=== PATIENT | female | born 1945 | race Caucasian/White ===

== ENCOUNTER → 2018-03-10 07:28 | Outpatient (CLI) | payer OTHER, SELFPAY ==
[2018-03-10 09:46] LABS: Alanine Aminotransferase 35 IU/L (9-52); Aspartate Aminotransferase 29 IU/L (14-36); BUN Creatinine Ratio 21.7 (6-22); Blood Urea Nitrogen 13 mg/dL (7-17); Calcium 9.2 mg/dL (8.4-10.2); Carbon Dioxide 31 mmol/L (22-32); Chloride 98 mmol/L (98-107); Cholesterol 126 mg/dL (140-199); Estimated Glomerular Filt Rate > 60.0 mL/min (>60); Glucose 105 mg/dL (80-110); HDL Cholesterol 50 mg/dL (40-60); HEMOLYSIS < 15 (0-50); LDL Cholesterol Calculated 32 mg/dL (<100); Sodium 141 mmol/L (137-145); Triglycerides 218 mg/dL (35-150)
== END ==
PROVIDERS: Visit Provider Internal Medicine
DX: I10 Essential (primary) hypertension (principal); E78.5 Hyperlipidemia, unspecified
CPT/HCPCS: 36415; 80048; 80061; 84450; 84460

== ENCOUNTER → 2018-03-18 13:26 | Outpatient (CLI) | payer OTHER, SELFPAY | PROVIDERS: PCP Internal Medicine; Visit Provider Internal Medicine | DX: Z13.820 Encounter for screening for osteoporosis (principal); Z78.0 Asymptomatic menopausal state | CPT/HCPCS: 77080 ==

== ENCOUNTER → 2018-05-05 10:50 | Outpatient (CLI) | payer OTHER, SELFPAY ==
--- NOTE | 2018-05-05 | DI.MG.S_ITS ---
BILATERAL DIGITAL SCREENING MAMMOGRAM 3D/2D WITH CAD: 05/05/2018 CLINICAL: Routine screening. Family history of breast cancer. Comparison is made to exams dated: 05/03/2017 mammogram, 05/30/2016 mammogram, and 06/01/2015 mammogram - [facility]. The tissue of both breasts is heterogeneously dense. This may lower the sensitivity of mammography. Current study was also evaluated with a Computer Aided Detection (CAD) system. There are stable benign vascular calcifications and calcifications in both breasts. No significant masses, calcifications, or other findings are seen in either breast. There has been no significant interval change. IMPRESSION: There is no mammographic evidence of malignancy. A 1 year screening mammogram is recommended. This exam was interpreted at Station ID: [id number]. NOTE: For mammograms, a report in lay terms will be sent to the patient. Approximately 15% of breast malignancies will not be visualized mammographically. In the management of a palpable breast mass, a negative mammogram must not discourage biopsy of a clinically suspicious lesion. Electronically Signed By: Eduardo [email or web address]/[email or web address]:05/05/2018 16:40:07 letter sent: Normal Exam ACR BI-RADS Category 2: Benign Finding(s) 3342F
== END ==
PROVIDERS: PCP Internal Medicine; Visit Provider Internal Medicine
DX: Z12.31 Encounter for screening mammogram for malignant neoplasm of breast (principal); Z80.3 Family history of malignant neoplasm of breast
CPT/HCPCS: 77063; 77067

== ENCOUNTER 2018-09-05 08:41 | Outpatient (RCR) | payer OTHER, SELFPAY ==
--- NOTE | 2018-09-05 09:42 | PT.OIE ---
Current Diagnoses Benign paroxysmal vertigo, unspecified ear (09/05/18) Benign paroxysmal vertigo, right ear (09/05/18) Dizziness and giddiness (09/05/18) Past Medical History (Last Reviewed 01/28/18 @ 09:32 by Sunni Gillette DNP, [place], WORK ADJUSTMENT INSTRUCTOR-C) Central serous retinopathy (Chronic 2013) Hypertension (Chronic 2004) Breast cancer (Resolved 2011) Mumps (Resolved ~1960) Ringworm (Resolved) Skin cancer (Resolved 2004) Past Surgical History (Last Reviewed 01/28/18 @ 09:32 by Sunni Gillette DNP, [place], WORK ADJUSTMENT INSTRUCTOR-C) Anesthesia (Resolved) Status post breast lumpectomy (Resolved 2011) Status post hysterectomy (Resolved) Provider Visit Care Team Role Provider Type Lee Ann Lamas MD Attending Provider Physician Primary Care Provider Specialty: Internal Medicine Address: [address] [place] [address] Email: Physical Therapy Initial Evaluation PT-OP-A Visit Information Start: 09/05/18 09:30 Freq: Status: Active Protocol: Document 09/05/18 09:00 DCW (Rec: 09/05/18 09:41 [facility] [id number]) Out-Patient Physical Therapy Visit Information Visit Information Visit Type Initial Evaluation Visit Start Time 09:00 Visit Stop Time 09:30 Total Visit Minutes 30 Visit Number 1 Number of DEPORTATION EXAMINER Visits 0 Evaluation Information Evaluation Date 09/05/18 PT-OP-B Current Condition Start: 09/05/18 09:30 Freq: Status: Active Protocol: Document 09/05/18 09:00 DCW (Rec: 09/05/18 09:41 [facility] [id number]) Current Condition History of Current Condition Onset Date 2 months Current Complaints Sudden onset position- dependent vertigo History of Current Condition Pt is a 73 year old female complaining of a two month history of motion-induced vertigo. Pt reports episodes last 30 seconds. Symptoms are provoked by laying in bed at night, and again when getting up in the morning. Pt denies recent hearing changes, tinnitus, diplopia, dysarthria , discoordination, or decreased mentation/ consciousness. Pt reports symptoms are waxing/waning in nature. Pt denies hx of hyperlipidemia, diabetes, arrhythmia, head trauma, seizure, migraines, back/neck problems, CVA, anxiety/panic disorders, depression, or excessive smoking or drinking. Pt does have a history of HTN , however reports it to be very well controlled on a low dose of medication. Treatment Goals Patient/Caregiver Goals Pt would like to limit the dizziness Prior Functional Status Baseline Function- ADL's Independent Baseline Function- Mobility Independent Current Functional Impairments (Reported) Functional Limitations- ADL's Dizziness with changes in position PT-OP-C Subjective Start: 09/05/18 09:30 Freq: Status: Active Protocol: Document 09/05/18 09:00 DCW (Rec: 09/05/18 09:41 [facility] [id number]) OP-PT Subjective Patient Comments Patient Comments It just seems like the wall moves when I roll over in bed. Patient Questionnaires Dizziness Handicap Inventory DHI Score 46% DHI Functional Impairment 40 to 59% Impaired (Score 40- 59) OP-PT Pain Assessment Pain Assessment Grid Paper Pain Assessment Grid Completed Yes: No pain PT-OP-O Vestibular Start: 09/05/18 09:30 Freq: Status: Active Protocol: Document 09/05/18 09:00 DCW (Rec: 09/05/18 09:41 [facility] [id number]) Vestibular Assessment Screening Tests Vestibular Artery Screen Negative Sharp-Chloé Test Negative Auditory Tests Harris Test Negative Rinne Test Negative Air Conduction Results Equal Visual Testing Smooth Pursuits Horizontal Negative Smooth Pursuits Vertical Negative Saccades Horizontal Negative Gaze Evoked Nystagmus With Fixation Negative Gaze Evoked Nystagmus Without Fixation Negative Heave Test Negative Thrust Head Negative Head Shake Negative Positional Testing Shaggy-Hallpike Positive Right Negative Left Upbeating < 60 Seconds Rolling Test Negative Left Negative Right PT-OP-Q Treatments Start: 09/05/18 09:30 Freq: Status: Active Protocol: Document 09/05/18 09:00 DCW (Rec: 09/05/18 09:41 [facility] [id number]) Canalithic Repositioning BPPV Treatment Mango Affected Canal(s) Right Posterior Reps x2 PT-OP-T Assessment and Plan Start: 09/05/18 09:30 Freq: Status: Active Protocol: Document 09/05/18 09:00 DCW (Rec: 09/05/18 09:41 [facility] [id number]) Physical Therapy Assessment Rehab Potential Rehabilitation Potential Excellent Evaluation Complexity Number of Personal Factors/Comorbidities 1-2 Number of Body Systems Impaired 1-2 Clinical Presentation at Evaluation Unstable Impairments Impairments Balance Vestibular Goals Three Impairment Pt score 46% disability on Dizziness Handicap Inventory Short Term Goal (STG) Pt to score at worst 15% disability on DHI Two Impairment Positive right Shaggy-Hallpike Short Term Goal (STG) Pt to exhibit negative [place]- [place] bilaterally STG Duration 10/05/18 One Impairment Pt reports dizziness when changing position in bed Short Term Goal (STG) Pt to report no dizziness with positional changes STG Duration 10/05/18 Assessment Summary Assessment During right Shaggy-Hallpike test , pt complained of vertigo and demonstrated up-beating, torsional nystagmus lasting approximately 15 seconds, consistent with diagnosis of right-sided posterior canal BPPV, canalithiasis-type. Pt was treated with a right-sided Mango maneuver. Pt complained of symptoms in the first and third position, which is normally indicative of a successful treatment. Further positional testing was still positive, however substantially less severe. A second Mango maneuver was performed. Pt was educated on BPPV, expectations for treatment, possible recurrence (BPPV has a ~50% recurrence rate in the five years following treatment), and post -Mango restrictions. Pt to return in ~1 week for a follow -up appointment, and intermittently afterward as indicated for treatment of BPPV. Physical Therapy Plan Frequency and Duration Frequency of Treatment as indicated for Tx Duration of Treatment 1 month Plan of Care Start Date 09/05/18 Plan of Care End Date 10/05/18 Therapeutic Interventions Therapeutic Interventions Balance Training Canalithic Repositioning Vestibular Rehabilitation Next Visit Focus/Plan Next Note Type Treatment Note Next Visit Plan Further positional testing and CRM as indicated
--- NOTE | 2018-09-05 09:42 | PT.OPPOC ---
Current Diagnoses Benign paroxysmal vertigo, unspecified ear (09/05/18) Benign paroxysmal vertigo, right ear (09/05/18) Dizziness and giddiness (09/05/18) Provider Visit Care Team Role Provider Type Lee Ann Lamas MD Attending Provider Physician Primary Care Provider Specialty: Internal Medicine Address: [address] [place] [address], [id number] Email: Plan Of Care PT-OP-T Assessment and Plan Start: 09/05/18 09:30 Freq: Status: Active Protocol: Document 09/05/18 09:00 DCW (Rec: 09/05/18 09:41 DCW [id number]) Physical Therapy Assessment Rehab Potential Rehabilitation Potential Excellent Evaluation Complexity Number of Personal Factors/Comorbidities 1-2 Number of Body Systems Impaired 1-2 Clinical Presentation at Evaluation Unstable Impairments Impairments Balance Vestibular Goals Three Impairment Pt score 46% disability on Dizziness Handicap Inventory Short Term Goal (STG) Pt to score at worst 15% disability on DHI Two Impairment Positive right [place]-Hallpike Short Term Goal (STG) Pt to exhibit negative [place]- Hallpike bilaterally STG Duration 10/05/18 One Impairment Pt reports dizziness when changing position in bed Short Term Goal (STG) Pt to report no dizziness with positional changes STG Duration 10/05/18 Assessment Summary Assessment During right [place]-Hallpike test , pt complained of vertigo and demonstrated up-beating, torsional nystagmus lasting approximately 15 seconds, consistent with diagnosis of right-sided posterior canal BPPV, canalithiasis-type. Pt was treated with a right-sided Mango maneuver. Pt complained of symptoms in the first and third position, which is normally indicative of a successful treatment. Further positional testing was still positive, however substantially less severe. A second Mango maneuver was performed. Pt was educated on BPPV, expectations for treatment, possible recurrence (BPPV has a ~50% recurrence rate in the five years following treatment), and post -Mango restrictions. Pt to return in ~1 week for a follow -up appointment, and intermittently afterward as indicated for treatment of BPPV. Physical Therapy Plan Frequency and Duration Frequency of Treatment as indicated for Tx Duration of Treatment 1 month Plan of Care Start Date 09/05/18 Plan of Care End Date 10/05/18 Therapeutic Interventions Therapeutic Interventions Balance Training Canalithic Repositioning Vestibular Rehabilitation Next Visit Focus/Plan Next Note Type Treatment Note Next Visit Plan Further positional testing and CRM as indicated Plan of Care Dates Plan of Care Start Date 09/05/18 Plan of Care End Date 10/05/18 Please Sign and Return: I have reviewed this Plan of Care and certify that the skilled therapy services above are required to meet the patient?s needs. Physician Signature Date Printed Name and Credentials Clinical Instructor Signature Printed Name and Credentials
--- NOTE | 2018-10-14 14:02 | PT.OPDS ---
Current Diagnoses Benign paroxysmal vertigo, unspecified ear (09/05/18) Benign paroxysmal vertigo, right ear (09/05/18) Dizziness and giddiness (09/05/18) Provider Visit Care Team Role Provider Type Lee Ann Lamas MD Attending Provider Physician Primary Care Provider Specialty: Internal Medicine Address: [address] [place] [address], [id number] Email: Visit Number Visit Number 1 Discharge Summary PT-OP-B Current Condition Start: 09/05/18 09:30 Freq: Status: Active Protocol: Document 09/05/18 09:00 DCW (Rec: 09/05/18 09:41 DCW [id number]) Current Condition History of Current Condition Onset Date 2 months Current Complaints Sudden onset position- dependent vertigo History of Current Condition Pt is a 73 year old female complaining of a two month history of motion-induced vertigo. Pt reports episodes last 30 seconds. Symptoms are provoked by laying in bed at night, and again when getting up in the morning. Pt denies recent hearing changes, tinnitus, diplopia, dysarthria , discoordination, or decreased mentation/ consciousness. Pt reports symptoms are waxing/waning in nature. Pt denies hx of hyperlipidemia, diabetes, arrhythmia, head trauma, seizure, migraines, back/neck problems, CVA, anxiety/panic disorders, depression, or excessive smoking or drinking. Pt does have a history of HTN , however reports it to be very well controlled on a low dose of medication. Treatment Goals Patient/Caregiver Goals Pt would like to limit the dizziness Prior Functional Status Baseline Function- ADL's Independent Baseline Function- Mobility Independent Current Functional Impairments (Reported) Functional Limitations- ADL's Dizziness with changes in position PT-OP-C Subjective Start: 09/05/18 09:30 Freq: Status: Active Protocol: Document 09/05/18 09:00 DCW (Rec: 09/05/18 09:41 DCW [id number]) OP-PT Subjective Patient Comments Patient Comments It just seems like the wall moves when I roll over in bed. Patient Questionnaires Dizziness Handicap Inventory DHI Score 46% DHI Functional Impairment 40 to 59% Impaired (Score 40- 59) OP-PT Pain Assessment Pain Assessment Grid Paper Pain Assessment Grid Completed Yes: No pain PT-OP-O Vestibular Start: 09/05/18 09:30 Freq: Status: Active Protocol: Document 09/05/18 09:00 DCW (Rec: 09/05/18 09:41 [facility] [id number]) Vestibular Assessment Screening Tests Vestibular Artery Screen Negative Sharp-Chloé Test Negative Auditory Tests Harris Test Negative Rinne Test Negative Air Conduction Results Equal Visual Testing Smooth Pursuits Horizontal Negative Smooth Pursuits Vertical Negative Saccades Horizontal Negative Gaze Evoked Nystagmus With Fixation Negative Gaze Evoked Nystagmus Without Fixation Negative Heave Test Negative Thrust Head Negative Head Shake Negative Positional Testing Shaggy-Hallpike Positive Right Negative Left Upbeating < 60 Seconds Rolling Test Negative Left Negative Right PT-OP-T Assessment and Plan Start: 09/05/18 09:30 Freq: Status: Active Protocol: Document 10/14/18 14:01 DC (Rec: 10/14/18 14:02 [facility] [id number]) Physical Therapy Assessment Goals Three Impairment Pt score 46% disability on Dizziness Handicap Inventory Short Term Goal (STG) Pt to score at worst 15% disability on DHI Two Impairment Positive right [place]-Hallpike Short Term Goal (STG) Pt to exhibit negative [place]- [place] bilaterally STG Duration 10/05/18 One Impairment Pt reports dizziness when changing position in bed Short Term Goal (STG) Pt to report no dizziness with positional changes STG Duration 10/05/18 Assessment Summary Assessment Pt instructed to follow-up with a second vestibular rehab appointment within one month if symptoms returned or changed. Pt has not scheduled any further visits, and will now be discharged from skilled PT at this time. Physical Therapy Plan Discharge Physical Therapy Discharge Reasons No Longer Attending PT Next Visit Focus/Plan Next Note Type Discharge Summary
== END 2018-10-14 15:39 ==
LOC: PHYS 08:41
PROVIDERS: PCP Internal Medicine; Visit Provider Internal Medicine
DX: H81.10 Benign paroxysmal vertigo, unspecified ear (principal); H81.11 Benign paroxysmal vertigo, right ear
CPT/HCPCS: 95992; 97161

== ENCOUNTER → 2018-10-10 09:59 | Outpatient (CLI) | payer OTHER, SELFPAY ==
[2018-10-14 14:33] LABS: Rubeola Measles IgG > 300.00 AU/mL (< 25.00)
== END ==
PROVIDERS: PCP Internal Medicine; Visit Provider Internal Medicine
DX: Z11.59 Encounter for screening for other viral diseases (principal)
CPT/HCPCS: 36415; 86735; 86762; 86765

== ENCOUNTER → 2019-03-20 07:39 | Outpatient (CLI) | payer OTHER, SELFPAY ==
[2019-03-20 15:18] LABS: Alanine Aminotransferase 35 IU/L (9-52); Aspartate Aminotransferase 37 IU/L (14-36); Blood Urea Nitrogen 15 mg/dL (7-17); Calcium 9.5 mg/dL (8.4-10.2); Carbon Dioxide 26 mmol/L (22-32); Chloride 100 mmol/L (98-107); Cholesterol 164 mg/dL (140-199); Estimated Glomerular Filt Rate > 60.0 mL/min (>60); Glucose 101 mg/dL (80-110); HDL Cholesterol 54 mg/dL (40-60); HEMOLYSIS 41 (0-50); LDL Cholesterol Calculated 63 mg/dL (<100); Potassium 4.9 mmol/L (3.4-5.1); Sodium 137 mmol/L (137-145); Triglycerides 235 mg/dL (35-150)
== END ==
PROVIDERS: PCP Internal Medicine; Visit Provider Internal Medicine
DX: I10 Essential (primary) hypertension (principal); E78.5 Hyperlipidemia, unspecified
CPT/HCPCS: 36415; 80048; 80061; 84450; 84460

== ENCOUNTER → 2019-05-07 09:53 | Outpatient (CLI) | payer OTHER, SELFPAY ==
--- NOTE | 2019-05-07 | DI.MG.S_ITS ---
BILATERAL DIGITAL SCREENING MAMMOGRAM 3D/2D WITH CAD: 05/07/2019 CLINICAL: Routine screening. Family history of breast cancer. Comparison is made to exams dated: 05/05/2018 mammogram, 05/03/2017 mammogram, and 05/30/2016 mammogram - [facility]. The tissue of both breasts is heterogeneously dense. This may lower the sensitivity of mammography. Current study was also evaluated with a Computer Aided Detection (CAD) system. There are stable benign calcifications in both breasts. There also are stable benign vascular calcifications in both breasts. No significant masses, calcifications, or other findings are seen in either breast. There has been no significant interval change. IMPRESSION: There is no mammographic evidence of malignancy. A 1 year screening mammogram is recommended. This exam was interpreted at Station ID: [id number]. NOTE: For mammograms, a report in lay terms will be sent to the patient. Approximately 15% of breast malignancies will not be visualized mammographically. In the management of a palpable breast mass, a negative mammogram must not discourage biopsy of a clinically suspicious lesion. Electronically Signed By: Matthew fraga/monae:05/07/2019 10:51:04 letter sent: Normal Exam ACR BI-RADS Category 2: Benign Finding(s) 3342F
== END ==
PROVIDERS: PCP Internal Medicine; Visit Provider Internal Medicine
DX: Z12.31 Encounter for screening mammogram for malignant neoplasm of breast (principal); Z80.3 Family history of malignant neoplasm of breast
CPT/HCPCS: 77063; 77067

== ENCOUNTER → 2019-10-28 07:13 | Outpatient (CLI) | payer OTHER, SELFPAY ==
[2019-10-28 09:12] LABS: Cholesterol 144 mg/dL (140-199); HDL Cholesterol 51 mg/dL (40-60); LDL Cholesterol Calculated 38 mg/dL (<100); Triglycerides 276 mg/dL (35-150)
[2019-10-28 09:24] LABS: Free T4, Direct Thyroxine 0.85 ng/dL (0.78-2.19)
[2019-10-28 09:37] LABS: Thyroid Stimulating Hormone 3.07 uIU/mL (0.47-4.68)
== END ==
PROVIDERS: PCP Internal Medicine; Referring Provider Nurse Practitioner; Visit Provider Nurse Practitioner
DX: E78.5 Hyperlipidemia, unspecified (principal); I10 Essential (primary) hypertension; E78.1 Pure hyperglyceridemia
CPT/HCPCS: 36415; 80061; 84439; 84443; 84481

== ENCOUNTER → 2020-01-28 07:04 | Outpatient (CLI) | payer OTHER, SELFPAY ==
[2020-01-28 08:39] LABS: Cholesterol 131 mg/dL (140-199); HDL Cholesterol 73 mg/dL (40-60); LDL Cholesterol Calculated 15 mg/dL (<100); Triglycerides 215 mg/dL (35-150)
== END ==
PROVIDERS: PCP Nurse Practitioner; Referring Provider Nurse Practitioner; Visit Provider Nurse Practitioner
DX: E78.1 Pure hyperglyceridemia (principal)
CPT/HCPCS: 36415; 80061

== ENCOUNTER 2020-03-15 06:46 | Emergency (ER) | payer OTHER, SELFPAY ==
[2020-03-15 06:59] VITALS: BP 211/111; PULSE 78; RESP 20; TEMP 36.6; O2SAT 96; BMI 30.7
--- NOTE | 2020-03-15 07:32 | DI.RAD.S_ITS ---
PROCEDURE: XR CERVICAL SPINE 2V OR 3V INDICATIONS: neck pain TECHNIQUE: 3 view(s) of the cervical spine were acquired. COMPARISON: None. FINDINGS: Bones: No fractures or dislocations to the superior endplate of T1 level. The lateral masses of C1 appear intact on the odontoid view. No suspicious bony lesions. Rnfy-ju-bdpoglab degenerative change demonstrable by a small anterior vertebral body osteophytes, uncovertebral joint hypertrophy, and mild intervertebral disc space height loss at C5-C6. Soft tissues: No prevertebral soft tissue swelling. IMPRESSION: [id number]-[id number] degenerative change in the cervical spine. Dictated by: Reid Mijares M.D. on 03/15/2020 at 8:02 Approved by: Reid Mijares M.D. on 03/15/2020 at 8:03
--- NOTE | 2020-03-15 07:36 | PC.NURSE ---
Pt instructed to take morning blood pressure medications per Dr Newman.
--- NOTE | 2020-03-15 08:01 | ED.NECK ---
HPI - Neck Pain/Injury General Chief Complaint: Neck Pain/Injury Stated Complaint: PAIN IN BACK OF NECK Time Seen by Provider: 03/15/20 06:46 Source: patient and family Mode of arrival: Ambulatory Limitations: no limitations History of Present Illness HPI Narrative: Patient here with . Complains 1 week mid posterior neck pain. No known injury. No new activities. No numbness tingling weakness to the hands feet legs or saddle paresthesia or bowel or bladder incontinence or retention. No prior neck problems or surgeries. No recent illness. No fever chills cough cold congestion. Patient being evaluated by primary care and neurology for early dementia. MRI to be rescheduled for open MRI for the brain. Blood pressure noted on arrival for has improved, 173/81 MD complaint: neck pain Related Data Previous Rx's Medication Instructions Recorded metoprolol succinate 25 mg 25 mg PO DAILY #90 tab 11/04/19 tablet,extended release 24 hr metoprolol succinate 50 mg 50 mg PO DAILY #90 tab 11/04/19 tablet,extended release 24 hr rosuvastatin 10 mg tablet 10 mg PO DAILY #90 tab 11/04/19 rosuvastatin 5 mg tablet 5 mg PO DAILY #90 tab 11/04/19 donepezil 5 mg tablet 5 mg PO BEDTIME #90 tab 02/03/20 baclofen 10 mg PO TID #14 tab 03/15/20 baclofen 10 mg PO TID #20 tab 03/15/20 ondansetron 4 mg PO Q8H PRN #10 tab 03/15/20 Allergies Allergy/AdvReac Type Severity Reaction Status Date / Time cephalexin [CEPHALEXIN] Allergy Mild RASH Verified 02/03/20 10:32 amoxicillin Allergy tongue Verified 02/03/20 10:32 swelling Review of Systems Review of Systems Narrative: GENERAL: Denies chills, fatigue, malaise, fever, sweats. HEENT: Denies sinus pain, ear pain, sore throat, difficulty swallowing RESPIRATORY: Denies dyspnea, cough CARDIOVASCULAR: Denies chest pain, palpitations, edema, GASTROINTESTINAL: Denies nausea, vomiting, abdominal pain, diarrhea, constipation, melena. : Denies dysuria, frequency, hematuria MUSCULOSKELETAL: Complains of neck pain SKIN: Denies rash, skin lesions NEUROLOGIC: Denies weakness, headache, numbness, change in speech, confusion PSYCHIATRIC: No SI or HI or hallucinations ROS Unobtainable: All systems reviewed & are unremarkable except as noted in HPI and below Patient History Medical History Breast cancer (Resolved 2011) Central serous retinopathy (Chronic 2013) Dementia (Acute) Forgetfulness (Inactive) Hypertension (Chronic 2004) Hypertriglyceridemia (Acute) Mumps (Resolved ~1960) PVC (premature ventricular contraction) (Acute) Ringworm (Resolved) Short-term memory loss (Inactive) Skin cancer (Resolved 2004) Varicose veins of both lower extremities (Inactive) Surgical History Anesthesia (Resolved) Status post breast lumpectomy (Resolved 2011) Status post hysterectomy (Resolved) Family History Father Hypertension Heart attack Mother Stroke Hypertension Social History Smoking Status: Never smoker Smoking Status: Never smoker Exam Narrative Exam Narrative: GENERAL: patient appears stated age. Well-nourished, well-developed patient, in no distress, not toxic not dyspneic HEAD: Normocephalic. EYES: Pupils equal round and reactive. No scleral icterus. No injection no discharge ENT: Mucous membranes moist. No drooling no tongue elevation no trismus no malocclusion NECK: Reproducible mid posterior cervical midline tenderness as well as paracervical muscle tenderness bilaterally. Increased pain with flexion extension and rotation of the head right and left. CARDIOVASCULAR: Regular rate and rhythm without murmurs, gallops, or rubs. RESPIRATORY: Clear to auscultation. Breath sounds equal bilaterally. No wheezes, rales, or rhonchi. GASTROINTESTINAL: Abdomen soft, non-tender, nondistended. EXTREMITIES: No gross deformities. BACK: Nontender without deformity or crepitance. No flank tenderness. NEURO: AOx4. Clear speech no facial droop light touch intact to bilateral face hands and legs. 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 Strong bilateral patellar reflexes and ankle flexion extension SKIN: Warm and dry PSYCH: Not anxious, is cooperative Initial Vital Signs Initial Vital Signs: Vital Signs Temperature 97.8 F 03/15/20 06:59 Pulse Rate 78 03/15/20 06:59 Respiratory Rate 20 03/15/20 06:59 Blood Pressure 211/111 H 03/15/20 06:59 Pulse Oximetry 96 03/15/20 06:59 Course Course Course Narrative: No new complaints while here. No chest pain. No neuro deficits or complaints. Orders Ordered: Discontinued Medications Hydrocodone Bitart/Acetaminophen ([place] 5/325) 1 tab PO NOW ONE Stop: 03/15/20 08:01 Last Admin: 03/15/20 08:11 Dose: 1 tab Documented by: LAMBERTO Ketorolac Tromethamine (Toradol) 15 mg IM NOW ONE Stop: 03/15/20 08:01 Last Admin: 03/15/20 08:12 Dose: 15 mg Documented by: LAMBERTO Ondansetron HCl (Zofran Odt) 4 mg SL NOW ONE Stop: 03/15/20 08:01 Last Admin: 03/15/20 08:11 Dose: 4 mg Documented by: LAMBERTO Reevaluation(s) Reevaluation #1: Patient feeling better blood pressure improved. Patient was anxious on arrival and, blood pressure noted. Has improved. Time: 08:28 Reevaluation #2: Pain is improved was 03/12 now 410. Patient and desire discharge home Time: 08:43 Vital Signs Vital signs: Vital Signs - 8 hr 03/15/20 06:59 03/15/20 08:19 Temperature 97.8 F Pulse Rate 78 73 Respiratory Rate 20 16 Blood Pressure 211/111 H 173/81 H Pulse Oximetry 96 MDM - Neck Pain/Injury Differential Diagnosis Differential diagnosis: Likely disc disorder of cervical region, cervical radiculopathy and torticollis Imaging Data X-ray cervical spine: Radiologist's Impression: [address] [address] XRay Report Signed Patient: Janeth Snell [facility]#: [id number] : 5Acct:[id number] Age/Sex: 74 / FDate of Service: 03/15/20 Loc: ED Accession Number: [id number] Procedure: XR cervical spine 2V or 3V Ordering Provider: Demetrius Newman MD PROCEDURE: XR CERVICAL SPINE 2V OR 3V INDICATIONS: neck pain TECHNIQUE: 3 view(s) of the cervical spine were acquired. COMPARISON: None. FINDINGS: Bones: No fractures or dislocations to the superior endplate of T1 level. The lateral masses of C1 appear intact on the odontoid view. No suspicious bony lesions. Zgob-lq-ablorxhs degenerative change demonstrable by a small anterior vertebral body osteophytes, uncovertebral joint hypertrophy, and mild intervertebral disc space height loss at C5-C6. Soft tissues: No prevertebral soft tissue swelling. IMPRESSION: Ylnq-lx-hrqqjwvr degenerative change in the cervical spine. Dictated by: Reid Mijares M.D. on 03/15/2020 at 8:02 Approved by: Reid Mijares M.D. on 03/15/2020 at 8:03 [facility] Narrative Medical decision making narrative: Appropriate for follow-up with primary care for referral for physical therapy as well as possible outpatient MRI of the cervical spine. Has no neuro deficits at this time. Blood pressure improved. Discharge Plan Departure Patient Disposition: Home Clinical Impression: Disc disorder of cervical region Discharge Date/Time: 03/15/20 08:48 Instructions: DI for Neck Pain Activity Restrictions/Additional Instructions: No driving today. See family doctor this week for recheck and referral for possible physical therapy or MRI of the neck. Have your blood pressure recheck as well. Return if worse or if any questions or concerns. Prescriptions have been sent to local [facility] in [facility] Prescriptions: New baclofen 10 mg tablet 10 mg PO TID Qty: 14 RF: 0 baclofen 10 mg tablet 10 mg PO TID Qty: 20 RF: 0 ondansetron 4 mg tablet,disintegrating 4 mg PO Q8H PRN (Reason: nausea and vomiting) Qty: 10 RF: 0 No Action rosuvastatin 10 mg tablet 10 mg PO DAILY Qty: 90 RF: 3 rosuvastatin 5 mg tablet 5 mg PO DAILY Qty: 90 RF: 3 metoprolol succinate 50 mg tablet extended release 24 hr 50 mg PO DAILY Qty: 90 RF: 3 metoprolol succinate 25 mg tablet extended release 24 hr 25 mg PO DAILY Qty: 90 RF: 3 donepezil [Aricept] 5 mg tablet 5 mg PO BEDTIME Qty: 90 RF: 3 Referrals: Anna Boyer ARNP [Primary Care Provider] -
[2020-03-15] MEDS: ONDANSETRON 4 MG ODT SL (08:11)
[2020-03-15] MEDS: HYDROCODONE/ACET 5/325 TABLET 1 TAB PO (08:11)
[2020-03-15] MEDS: KETOROLAC 60 MG/2 ML VIAL 15 MG IM (08:12)
[2020-03-15 08:19] VITALS: BP 173/81; PULSE 73; RESP 16
== END 2020-03-15 08:48 | disposition home or self-care (01) ==
PROVIDERS: Emergency Provider Emergency Medicine; PCP Nurse Practitioner
DX: M50.90 Cervical disc disorder, unspecified, unspecified cervical region (principal)
CPT/HCPCS: 72040; 96372; 99283; 99284; J1885

== ENCOUNTER → 2020-03-18 08:50 | Outpatient (CLI) | payer OTHER, SELFPAY ==
[2020-03-18 10:15] LABS: Alanine Aminotransferase 27 IU/L (<35); Albumin 3.9 g/dL (3.5-5.0); Albumin Globulin Ratio 1.3 (1.0-2.8); Alkaline Phosphatase 82 U/L (38-126); Aspartate Aminotransferase 31 IU/L (14-36); BUN Creatinine Ratio 19.1 (6-22); Bilirubin Total 0.7 mg/dL (0.2-1.3); Blood Urea Nitrogen 13 mg/dL (7-17); Calcium 9.6 mg/dL (8.4-10.2); Carbon Dioxide 31 mmol/L (22-32); Chloride 102 mmol/L (98-107); Estimated Glomerular Filt Rate > 60.0 mL/min (>60); Globulin 2.9 g/dL (1.7-4.1); Glucose 123 mg/dL (80-110); HEMOLYSIS < 15 (0-50); Magnesium 1.7 mg/dL (1.6-2.3); Potassium 4.5 mmol/L (3.4-5.1); Sodium 138 mmol/L (137-145); Total Protein 6.8 g/dL (6.3-8.2)
== END ==
PROVIDERS: PCP Nurse Practitioner; Referring Provider Nurse Practitioner; Visit Provider Nurse Practitioner
DX: I49.8 Other specified cardiac arrhythmias (principal)
CPT/HCPCS: 36415; 80053; 83735

== ENCOUNTER → 2020-07-12 07:07 | Outpatient (CLI) | payer OTHER, SELFPAY ==
[2020-07-12 08:56] LABS: Alanine Aminotransferase 93 IU/L (<35); Albumin 4.3 g/dL (3.5-5.0); Albumin Globulin Ratio 1.2 (1.0-2.8); Alkaline Phosphatase 99 U/L (38-126); Aspartate Aminotransferase 88 IU/L (14-36); BUN Creatinine Ratio 18.7 (6-22); Bilirubin Total 0.7 mg/dL (0.2-1.3); Blood Urea Nitrogen 14 mg/dL (7-17); Calcium 9.2 mg/dL (8.4-10.2); Carbon Dioxide 33 mmol/L (22-32); Chloride 101 mmol/L (98-107); Cholesterol 125 mg/dL (140-199); Estimated Glomerular Filt Rate > 60.0 mL/min (>60); Globulin 3.5 g/dL (1.7-4.1); Glucose 109 mg/dL (80-110); HDL Cholesterol 54 mg/dL (40-60); HEMOLYSIS 16 (0-50); LDL Cholesterol Calculated 40 mg/dL (<100); Potassium 4.3 mmol/L (3.4-5.1); Sodium 136 mmol/L (137-145); Total Protein 7.8 g/dL (6.3-8.2); Triglycerides 153 mg/dL (35-150)
[2020-07-12 09:12] LABS: Creatinine Urine Random 63.9 mg/dL
[2020-07-12 09:17] LABS: Microalbumi Creatinin Ratio Ur 275.4 ug/mg CR (<30); Microalbumin Urine Random 17.6 mg/dL (0-1.6)
[2020-07-12 09:17] LABS: Free T4, Direct Thyroxine 0.97 ng/dL (0.78-2.19)
[2020-07-12 09:30] LABS: Thyroid Stimulating Hormone 2.17 uIU/mL (0.47-4.68)
== END ==
PROVIDERS: PCP Nurse Practitioner; Referring Provider Nurse Practitioner; Visit Provider Nurse Practitioner
DX: E78.1 Pure hyperglyceridemia (principal); E78.5 Hyperlipidemia, unspecified; I10 Essential (primary) hypertension; Z79.899 Other long term (current) drug therapy
CPT/HCPCS: 36415; 80053; 80061; 82043; 82570; 84439; 84443; 84481

== ENCOUNTER → 2020-09-02 13:22 | Outpatient (CLI) | payer OTHER, SELFPAY ==
--- NOTE | 2020-09-02 13:23 | DI.MG.S_ITS ---
BILATERAL DIGITAL SCREENING MAMMOGRAM 3D/2D WITH CAD: 09/02/2020 CLINICAL: Routine screening. Family history of breast cancer. Comparison is made to exams dated: 05/07/2019 mammogram, 05/05/2018 mammogram, and 05/03/2017 mammogram - [facility]. There are scattered fibroglandular elements in both breasts. Current study was also evaluated with a Computer Aided Detection (CAD) system. There are stable benign calcifications in both breasts. There also are stable benign vascular calcifications in both breasts. No significant masses, calcifications, or other findings are seen in either breast. There has been no significant interval change. IMPRESSION: BENIGN There is no mammographic evidence of malignancy. A 1 year screening mammogram is recommended. This exam was interpreted at Station ID: [id number]. NOTE: For mammograms, a report in lay terms will be sent to the patient. Approximately 15% of breast malignancies will not be visualized mammographically. In the management of a palpable breast mass, a negative mammogram must not discourage biopsy of a clinically suspicious lesion. Electronically Signed By: Matthew fraga/monae:09/02/2020 14:11:36 letter sent: Normal Exam ACR BI-RADS Category 2: Benign Finding(s) 3342F
--- NOTE | 2020-09-02 13:23 | DI.RAD.S_ITS ---
PROCEDURE: XR DEXA AXIAL SKELETON INDICATIONS: post menopausal osteoporisis surveillance COMPARISON: [facility], CR, XR DEXA AXIAL SKELETON, 03/18/2018, 14:05. FINDINGS: This blank DEXA report has been sent in error by the PACS system. The correct and complete report will be forthcoming in 1-2 days. Thank you for your patience and understanding. Dictated by: Coreen Kurtz MD, PhD on 09/05/2020 at 13:29 Approved by: Coreen Kurtz MD, PhD on 09/05/2020 at 13:29
== END ==
PROVIDERS: PCP Nurse Practitioner; Referring Provider Nurse Practitioner; Visit Provider Nurse Practitioner
DX: Z12.31 Encounter for screening mammogram for malignant neoplasm of breast (principal); M85.851 Other specified disorders of bone density and structure, right thigh
CPT/HCPCS: 77063; 77067; 77080

== ENCOUNTER → 2020-09-09 09:02 | Outpatient (CLI) | payer OTHER, SELFPAY ==
[2020-09-09 10:46] LABS: COVID19 -Nasal RAPID Negative (Negative)
== END ==
PROVIDERS: PCP Nurse Practitioner; Visit Provider Surgery
DX: Z20.822 Contact with and (suspected) exposure to COVID-19 (principal)
CPT/HCPCS: 87635; C9803

== ENCOUNTER 2020-09-12 07:29 | Day surgery (SDC) | payer OTHER, SELFPAY ==
[2020-09-12 07:44] VITALS: BP 159/81; PULSE 77; RESP 16; TEMP 35.9; O2SAT 95; BMI 31.6
[2020-09-12] MEDS: LACTATED RINGERS 1,000 ML 200 ML IV (07:44)
--- NOTE | 2020-09-12 07:47 | PM.HP.1 ---
History of Present Illness History of Present Illness Date Patient Seen: 09/12/20 Time Patient Seen: 07:48 Chief complaint: SCREENING COLONOSCOPY Narrative: The patient presents for colorectal sreening. They had a previously normal colonoscopy 10 years ago. No personal or family history of colon cancer. On further history denies any recent gastrointestinal symptoms. No nausea, vomiting, abdominal pain, loss of appetite, unexplained weight loss, change in bowel habits, diarrhea, constipation, melena, hematochezia, or bright red blood per rectum. Patient History Medical History Alzheimer's dementia without behavioral disturbance [place] Breast cancer (2011) Central serous retinopathy (2013) Dementia Forgetfulness Hypertension (2004) Hypertriglyceridemia Irregular heart rhythm Memory loss Mumps (~1960) Neck pain PVC (premature ventricular contraction) Ringworm Short-term memory loss Skin cancer (2004) Varicose veins of both lower extremities Surgical History Anesthesia Status post breast lumpectomy (2011) Status post hysterectomy Family & Social History Family History Father Hypertension Heart attack Mother Stroke Hypertension Tobacco & Substance use: Smoking Status Never smoker Meds Home Medications and Allergies Home Medications Medication Instructions Recorded Confirmed Type metoprolol succinate 50 mg 50 mg PO BID #180 tab 07/19/20 09/12/20 Rx tablet,extended release 24 hr rosuvastatin 10 mg tablet 10 mg PO DAILY #90 tab 07/19/20 09/12/20 Rx rosuvastatin 5 mg tablet 5 mg PO DAILY #90 tab 07/19/20 09/12/20 Rx memantine 5 mg tablet 10 mg PO BID #360 tab 08/02/20 09/12/20 Rx Allergies Allergy/AdvReac Type Severity Reaction Status Date / Time cephalexin [CEPHALEXIN] Allergy Mild RASH Verified 09/12/20 07:35 amoxicillin Allergy tongue Verified 09/12/20 07:35 swelling Review of Systems Review of Systems ROS: Yes All systems reviewed with the patient and are negative except as otherwise documented Exam Narrative Exam Narrative: General-no acute distress, elderly woman HEENT-moist mucous membranes, no scleral icterus Neck-supple, no lymphadenopathy Chest- non labored respirations, clear to auscultation bilaterally Cardiac-regular rate no peripheral edema Abdomen-soft, nontender nondistended Extremities-warm, well perfused Neurological-alert and oriented, no focal deficits Assessment & Plan Assessment & Plan narrative: The patient requires colorectal screening and colonoscopy is recommended. Technical details were discussed. Risks, benefits, alternatives explained. Risks including but not limited to myocardial infarction, aspiration, bleeding, pain, missed lesion, incomplete examination, need for further radiographic studies, colonic perforation, and need for major abdominal surgery were discussed. All questions were answered to their satisfaction, and they are in agreement with this plan.
[2020-09-12] MEDS: METOPROLOL TARTRATE 5 MG/5 ML INJ IV (08:53)
[2020-09-12] MEDS: MIDAZOLAM 5 MG/5 ML VIAL IV (08:54)
[2020-09-12] MEDS: fentaNYL 250 MCG/5 ML INJ IV (08:56)
--- NOTE | 2020-09-12 09:00 | PM.OP.ENDO ---
Operative Date/Time/Diagnoses Date of procedure: 09/12/20 Time of procedure: 09:00 Pre-op diagnosis: Screening colonoscopy Post-op diagnosis: same Procedure & Clinicians Study performed: Aborted colonoscopy Same procedure as scheduled: Yes Indications: 75-year-old woman last colonoscopy 10 years ago normal presents for routine screening Surgeon: Mansoor Nur Procedure Notes Procedure in detail: Medications: Conscious sedation using 5mg IV midazolam and 200mcg IV of fentanyl The history and physical was performed/updated and the patient is ASA class is 2. The procedure was discussed in detail with the patient. Potential risks complications including infection, bleeding, missed diagnosis, perforation, need for surgery, and were explained. Their questions were answered and informed consent was obtained. Patient was brought to the procedure room and placed standard monitoring equipment. The patient's vital signs were monitored continuously throughout the entire procedure. Prior to starting time-out was performed. The patient was placed in the left lateral recumbent position. Procedural sedation was administered. Examination began with a thorough inspection of the perianal area there was no evidence of fissures, fistulae, external hemorrhoids or cutaneous malignancy. The colonoscopy scope was then placed into the anal canal and was advanced forward. The sigmoid colon was notable for significant diverticulosis and at about 40 cm from the anal verge there was a large amount remaining stool. Despite irrigation I was unable to adequately clear the lumen of the bowel and the colonoscopy was subsequently aborted secondary to inadequate prep. Sedation time 18 minutes. Impression: Aborted colonoscopy Post-procedure Plan for aftercare: Reschedule after adequate preparation Disposition: same day surgery
[2020-09-12 09:05] VITALS: BP 146/76; PULSE 66; RESP 12; TEMP 36.6; O2SAT 96
[2020-09-12 09:10] VITALS: BP 146/76; PULSE 75; RESP 13; O2SAT 96
[2020-09-12 09:15] VITALS: BP 129/72; PULSE 65; RESP 10; O2SAT 94
[2020-09-12 09:20] VITALS: BP 122/66; PULSE 67; RESP 13; O2SAT 96
[2020-09-12 09:25] VITALS: BP 122/66; PULSE 78; RESP 13; TEMP 36.4; O2SAT 94
== END 2020-09-12 09:40 | disposition home or self-care (01) ==
PROVIDERS: PCP Nurse Practitioner; Referring Provider Nurse Practitioner; Visit Provider Surgery
PROC: 0DJD8ZZ Inspection of Lower Intestinal Tract, Via Natural or Artificial Opening Endoscopic (ICD-10-PCS; CPT 45378; principal; 2020-09-12 08:30)
DX: Z12.11 Encounter for screening for malignant neoplasm of colon (principal); K57.30 Diverticulosis of large intestine without perforation or abscess without bleeding; Z53.09 Procedure and treatment not carried out because of other contraindication
CPT/HCPCS: G0121; 99152; J2250; J3010

== ENCOUNTER → 2020-10-20 07:18 | Outpatient (CLI) | payer OTHER, SELFPAY ==
[2020-10-20 08:24] LABS: BUN Creatinine Ratio 21.2 (6-22); Blood Urea Nitrogen 14 mg/dL (7-17); Calcium 9.5 mg/dL (8.4-10.2); Carbon Dioxide 28 mmol/L (22-32); Chloride 103 mmol/L (98-107); Estimated Glomerular Filt Rate > 60.0 mL/min (>60); Glucose 115 mg/dL (80-110); HEMOLYSIS < 15 (0-50); Potassium 4.6 mmol/L (3.4-5.1); Sodium 138 mmol/L (137-145)
[2020-10-20 09:11] LABS: Vitamin B12 691 pg/mL (239-931)
== END ==
PROVIDERS: PCP Nurse Practitioner; Referring Provider Family Medicine; Visit Provider Family Medicine
DX: R41.3 Other amnesia (principal)
CPT/HCPCS: 36415; 80048; 82607; 84443

== ENCOUNTER → 2021-11-20 07:25 | Outpatient (CLI) | payer OTHER, SELFPAY ==
[2021-11-20 08:27] LABS: Alanine Aminotransferase 31 IU/L (<35); Albumin 4.1 g/dL (3.5-5.0); Albumin Globulin Ratio 1.5 (1.0-2.8); Alkaline Phosphatase 84 U/L (38-126); Aspartate Aminotransferase 37 IU/L (14-36); BUN Creatinine Ratio 16.9 (6-22); Bilirubin Total 0.8 mg/dL (0.2-1.3); Blood Urea Nitrogen 12 mg/dL (7-17); Calcium 8.8 mg/dL (8.4-10.2); Carbon Dioxide 28 mmol/L (22-32); Chloride 103 mmol/L (98-107); Cholesterol 120 mg/dL (140-199); Estimated Glomerular Filt Rate > 60 mL/min (>60); Globulin 2.8 g/dL (1.7-4.1); Glucose 112 mg/dL (80-110); HDL Cholesterol 54 mg/dL (40-60); HEMOLYSIS < 15 (0-50); LDL Cholesterol Calculated 36 mg/dL (<100); Potassium 4.7 mmol/L (3.4-5.1); Sodium 138 mmol/L (137-145); Total Protein 6.9 g/dL (6.3-8.2); Triglycerides 148 mg/dL (35-150)
[2021-11-20 08:39] LABS: Free T3, Triiodothyronine Free 3.61 pg/mL (2.77-5.27); Free T4, Direct Thyroxine 0.85 ng/dL (0.78-2.19)
[2021-11-20 08:55] LABS: Creatinine Urine Random 228.5 mg/dL
[2021-11-20 08:56] LABS: Hemoglobin A1C% w Est Avg Glu 5.7 % (4.0-6.0)
[2021-11-20 09:00] LABS: Microalbumi Creatinin Ratio Ur 23.6 ug/mg CR (<30); Microalbumin Urine Random 5.4 mg/dL (0-1.6)
== END ==
PROVIDERS: PCP Nurse Practitioner; Referring Provider Nurse Practitioner; Visit Provider Nurse Practitioner
DX: E78.2 Mixed hyperlipidemia (principal); R73.01 Impaired fasting glucose; I10 Essential (primary) hypertension; I49.3 Ventricular premature depolarization; Z79.899 Other long term (current) drug therapy
CPT/HCPCS: 36415; 80053; 80061; 82043; 82570; 83036; 84439; 84443; 84481

== ENCOUNTER → 2022-03-24 09:09 | Outpatient (CLI) | payer OTHER, SELFPAY ==
--- NOTE | 2022-03-24 09:12 | DI.RAD.S_ITS ---
PROCEDURE: XR WRIST RT MIN 3V INDICATIONS: eval right wrist pain; previous fracture TECHNIQUE: Four views of the wrist were acquired. COMPARISON: [facility], , WRIST MINIMUM 3 VIEWS LEFT, 04/15/2017, 10:18. FINDINGS: Bones: There are prominent degenerative changes at the 1st carpometacarpal and triscaphe articulations in the wrist. There is widening of the scapholunate interval and slight dorsal tilt of the lunate. Tiny non corticated calcific fragments are seen along the lateral distal pole of the scaphoid. Scaphoid view: Scaphoid is intact. No evidence of avascular necrosis. Soft tissues: Mild swelling around the thenar eminence. Probable dystrophic calcifications adjacent to the 1st CMC joint. Faint calcifications in the triangular fibrocartilage. IMPRESSION: Interval worsening of 1st CMC joint osteoarthritis. No fracture or dislocation. No evidence of osteonecrosis. Dictated by: Savanah Abraham M.D. on 03/24/2022 at 9:59 Approved by: Moise Baires M.D. on 03/26/2022 at 11:24
[2022-03-24 10:49] LABS: Uric Acid 6.7 mg/dL (2.5-6.2)
== END ==
PROVIDERS: PCP Nurse Practitioner; Referring Provider Nurse Practitioner; Visit Provider Nurse Practitioner
DX: M18.11 Unilateral primary osteoarthritis of first carpometacarpal joint, right hand (principal); M25.531 Pain in right wrist
CPT/HCPCS: 36415; 73110; 84550

== ENCOUNTER → 2022-04-13 14:52 | Outpatient (CLI) | payer OTHER, SELFPAY | PROVIDERS: PCP Nurse Practitioner; Referring Provider Nurse Practitioner; Visit Provider Nurse Practitioner | DX: I10 Essential (primary) hypertension (principal) | CPT/HCPCS: 93005; 93010 ==

== ENCOUNTER → 2022-04-16 08:59 | Outpatient (CLI) | payer OTHER, SELFPAY ==
[2022-04-17 19:17] LABS: Fecal Immunochemical Test Negative (Negative)
== END ==
PROVIDERS: PCP Nurse Practitioner; Referring Provider Nurse Practitioner; Visit Provider Nurse Practitioner
DX: Z12.11 Encounter for screening for malignant neoplasm of colon (principal)
CPT/HCPCS: 82274

== ENCOUNTER → 2022-04-30 12:22 | Outpatient (CLI) | payer OTHER, SELFPAY ==
[2022-04-30 13:13] LABS: Uric Acid 4.1 mg/dL (2.5-6.2)
== END ==
PROVIDERS: PCP Nurse Practitioner; Referring Provider Nurse Practitioner; Visit Provider Nurse Practitioner
DX: M25.531 Pain in right wrist (principal); M10.9 Gout, unspecified
CPT/HCPCS: 36415; 84550

== ENCOUNTER → 2022-05-04 13:30 | Outpatient (CLI) | payer OTHER, SELFPAY ==
--- NOTE | 2022-05-04 13:35 | DI.MG.S_ITS ---
BILATERAL DIGITAL SCREENING MAMMOGRAM 3D/2D WITH CAD: 05/04/2022 CLINICAL: Routine screening. Family history of breast cancer. Comparison is made to exams dated: 09/02/2020 mammogram, 05/07/2019 mammogram, and 05/05/2018 mammogram - [facility]. There are scattered areas of fibroglandular density in both breasts (category b / 25%-50% glandular tissue). Current study was also evaluated with a Computer Aided Detection (CAD) system. There are stable benign calcifications in both breasts. There also are stable benign vascular calcifications in both breasts. No significant masses, calcifications, or other findings are seen in either breast. There has been no significant interval change. IMPRESSION: BENIGN There is no mammographic evidence of malignancy. A 1 year screening mammogram is recommended. This exam was interpreted at Station ID: [id number]. NOTE: For mammograms, a report in lay terms will be sent to the patient. Approximately 15% of breast malignancies will not be visualized mammographically. In the management of a palpable breast mass, a negative mammogram must not discourage biopsy of a clinically suspicious lesion. Electronically Signed By: Savanah ryan/monae:05/04/2022 18:04:27 letter sent: Normal Exam ACR BI-RADS Category 2: Benign Finding(s) 3342F
--- NOTE | 2022-05-04 13:35 | DI.ECHO.S_ITS ---
[place] [facility]---------+ [facility] +---------+ : : [address] : : : : [id number] : : : : Phone: [phone]+ Echocardiogram Report + + :Name: FAIZAN ROSARIO Study Date: 05/04/2022 Height: 65 in : :[facility] ReadingLocation: Weight: 195 lb : : Gender: Female BSA: 2.0 m2 : :: 1945 Age: 76 yrs BP: 168/95 mmHg: :Reason For Study: Hypertension : :Ordering Physician: JAELYN, : :YOKO Performed By: Jimy Sinha : :Referring: YOKO CHRISTY : + + Interpretation Summary Normal sinus rhythm. Normal LV size, wall thickness, wall motion and LV systolic function. EF is 55-60%. Normal chamber sizes. No valvular abnormalities. No prior study available for comparison. Procedure: A two-dimensional transthoracic echocardiogram with color flow and Doppler was performed. The study quality was technically adequate. There is no prior echocardiogram noted for this patient. The patient was in normal sinus rhythm during the exam. Left Ventricle: The left ventricle is normal in size and wall thickness. Left ventricular systolic function is normal. The ejection fraction is estimated to be 55-60%. There are no focal wall motion abnormalities. Diastolic function could not be accurately assessed due to unobtainable data. Right Ventricle: The right ventricle is normal in size and function. Atria: Both atria are normal in size. The interatrial septum grossly appears intact with no obvious evidence for an atrial septal defect. Mitral Valve: There is mild mitral annular calcification. There is no mitral regurgitation noted. Aortic Valve: The aortic valve is normal in structure and function. No aortic regurgitation is present. Tricuspid Valve: The tricuspid valve is normal in structure and function. There is mild tricuspid regurgitation. The right ventricular systolic pressure is estimated to be at least 29 mmHg based on an estimated right atrial pressure of 3 mm Hg. Pulmonic Valve: The pulmonic valve is normal in structure and function. There is no pulmonic valvular regurgitation. Great Vessels: The aortic root is normal size. The ascending aorta could not be visualized. The IVC is of normal diameter and collapses greater than 50% with a sniff. This suggests a low right atrial pressure of 3 mm Hg. Pericardium/ Pleura There is no pericardial effusion. There is no pleural effusion. MMode/2D Measurements & Calculations LVIDd: 4.2 cm LVOT diam: 2.0 cm LVIDs: 2.9 cm Ao root diam: 2.6 cm FS: 31.0 % IVSd: 0.78 cm LVPWd: 0.80 cm LV nice. diameter/BSA (cm/m^2): 2.1 LV sys. diameter/BSA (cm/m^2): 1.5 LA A2 area: 13.3 cm2 RA long axis: 4.0 cm LA A4 area: 16.4 cm2 RA area: 11.2 cm2 LA length (vol): 5.2 cm RA vol: 27.2 ml LA vol: 35.5 ml RA : 13.9 ml/m2 LA vol index: 18.1 ml/m2 TAPSE: 2.2 cm Doppler Measurements & Calculations Ao V2 max: 171.5 cm/sec LVOT Max Jose F: 101.1 cm/sec Ao V2 mean: 111.8 cm/sec LV V1 max P.1 mmHg Ao max P.8 mmHg LV V1 VTI: 22.7 cm Ao mean P.6 mmHg ENRRIQUE(I,D): 2.1 cm2 Ao V2 VTI: 33.4 cm ENRRIQUE(V,D): 1.9 cm2 sev ratio: 0.68 ENRRIQUE indexed to BSA (cm^2/m^2): 1.1 MV E max jose f: 48.1 cm/sec TR max jose f: 256.1 cm/sec MV A max jose f: 93.9 cm/sec TR max P.2 mmHg MV E/A: 0.51 Med Peak E' Jose F: 6.6 cm/sec E/E' med: 7.3 Lat Peak E' Jose F: 8.2 cm/sec E/E' lat: 5.8 E/e' average: 6.6 MV dec time: 0.42 sec SV(LVOT): 71.6 ml Electronically signed by: Jennifer Cabrera M.D. on Reading Physician:05/05/2022 02:33 AM
== END ==
PROVIDERS: PCP Nurse Practitioner; Referring Provider Nurse Practitioner; Visit Provider Nurse Practitioner
DX: Z12.31 Encounter for screening mammogram for malignant neoplasm of breast (principal); Z80.3 Family history of malignant neoplasm of breast; I08.1 Rheumatic disorders of both mitral and tricuspid valves; Z00.00 Encounter for general adult medical examination without abnormal findings; I49.3 Ventricular premature depolarization; I10 Essential (primary) hypertension
CPT/HCPCS: 77063; 77067; 93306

== ENCOUNTER → 2022-05-12 12:39 | Outpatient (CLI) | payer OTHER, SELFPAY ==
--- NOTE | 2022-05-12 | DI.MRI.S_ITS ---
PROCEDURE: MR WRIST RT WO CON INDICATIONS: Dislocated right wrist TECHNIQUE: Noncontrast coronal proton density fast spin echo and T2 fast spin echo with fat saturation; coronal 3-D gradient echo, axial T1 spin echo and T2 fast spin echo with fat saturation, sagittal T1 spin echo through the wrist. COMPARISON: [facility], CR, XR WRIST RT MIN 3V, 03/24/2022, 9:22. FINDINGS: Image quality: Excellent. Bones and cartilage: The carpal bones are normally aligned. No bone marrow contusions or fractures. No evidence for avascular necrosis. Severe degenerative changes are seen at the 1st carpometacarpal joint with full-thickness cartilage loss, subchondral cystic changes and subchondral edema, marginal osteophyte formation, and mild remodeling of the articular surfaces. Subchondral edema is seen in the 2nd metacarpal base. Additional scattered degenerative changes are seen throughout the wrist. Small joint effusions are present. Carpal ligaments: The scapholunate and lunotriquetral ligaments appear intact. On sagittal images, the pisohamate ligament appears intact. Triangular fibrocartilage complex: There is focal degenerative perforation of the central triangular fibrocartilage disc. Tendons and soft tissues: The carpal tunnel structures appear normal, including the median nerve. The ulnar nerve appears normal within Guyon's canal. Mild extensor carpi ulnaris tendinosis. The remaining extensor tendon compartments demonstrate normal morphology, without pathologic tendon sheath fluid. Nonspecific soft tissue edema is seen in the subcutaneous tissues at the ulnar aspect of the wrist. IMPRESSION: 1. Severe 1st carpometacarpal joint osteoarthrosis. Additional mild to moderate scattered degenerative changes throughout the wrist. 2. Mild osseous edema at the base of the 2nd metacarpal may be secondary to degenerative changes versus a mild osseous contusion. 3. Focal degenerative perforation of the central triangular fibrocartilage disc. 4. Mild extensor carpi ulnaris tendinosis. Approved by: Willard Devine M.D. on 05/14/2022 at 8:26
== END ==
PROVIDERS: PCP Nurse Practitioner; Referring Provider Orthopaedic Surgery; Visit Provider Orthopaedic Surgery
DX: S63.00 Unspecified subluxation and dislocation of wrist and hand (principal); M18.11 Unilateral primary osteoarthritis of first carpometacarpal joint, right hand
CPT/HCPCS: 73221

== ENCOUNTER → 2022-11-20 09:31 | Outpatient (CLI) | payer OTHER, SELFPAY ==
--- NOTE | 2022-11-20 09:33 | DI.RAD.S_ITS ---
PROCEDURE: XR KNEE RT 3V INDICATIONS: Acute worsening R knee pain TECHNIQUE: 3 views of the knee were acquired. COMPARISON: None. FINDINGS: Bones: No fractures or dislocations. Cdmo-xk-ifqnqvrj tricompartmental osteoarthritis is seen most notably in patellofemoral compartment with significant joint space narrowing, subchondral sclerosis and prominent marginal osteophyte formation. Slight lateral subluxation of patella is also noted. No suspicious bony lesions. Soft tissues: No joint effusion. No suspicious soft tissue calcifications. IMPRESSION: Wykv-ts-pxjmqnbe tricompartmental osteoarthritis most notably in patellofemoral compartment as above. No fracture or dislocation. No significant joint effusion. Dictated by: Moise Baires M.D. on 11/20/2022 at 9:59 Approved by: Moise Baires M.D. on 11/20/2022 at 10:01
== END ==
PROVIDERS: PCP Nurse Practitioner; Referring Provider Nurse Practitioner; Visit Provider Nurse Practitioner
DX: M17.11 Unilateral primary osteoarthritis, right knee (principal); M25.561 Pain in right knee
CPT/HCPCS: 73562

== ENCOUNTER → 2022-12-03 07:11 | Outpatient (CLI) | payer OTHER, SELFPAY ==
[2022-12-03 08:36] LABS: Microalbumi Creatinin Ratio Ur 90.7 ug/mg CR (<30); Microalbumin Urine Random 13.7 mg/dL (0-1.6)
[2022-12-03 08:37] LABS: Alanine Aminotransferase 37 IU/L (<35); Albumin 4.2 g/dL (3.5-5.0); Albumin Globulin Ratio 1.5 (1.0-2.8); Alkaline Phosphatase 100 U/L (38-126); Aspartate Aminotransferase 36 IU/L (14-36); BUN Creatinine Ratio 20.8 (6-22); Bilirubin Total 0.6 mg/dL (0.2-1.3); Blood Urea Nitrogen 15 mg/dL (7-17); Calcium 9.8 mg/dL (8.4-10.2); Carbon Dioxide 30 mmol/L (22-32); Chloride 100 mmol/L (98-107); Cholesterol 128 mg/dL (140-199); Estimated Glomerular Filt Rate > 60 mL/min (>60); Globulin 2.8 g/dL (1.7-4.1); Glucose 101 mg/dL (80-110); HDL Cholesterol 61 mg/dL (40-60); HEMOLYSIS < 15 (0-50); LDL Cholesterol Calculated 31 mg/dL (<100); Potassium 4.8 mmol/L (3.4-5.1); Sodium 138 mmol/L (137-145); Triglycerides 182 mg/dL (35-150)
[2022-12-03 08:45] LABS: Free T3, Triiodothyronine Free 4.88 pg/mL (2.77-5.27); Free T4, Direct Thyroxine 0.94 ng/dL (0.78-2.19)
[2022-12-03 08:58] LABS: Thyroid Stimulating Hormone 2.16 uIU/mL (0.47-4.68)
[2022-12-04 06:22] LABS: x Labcorp Estim. Avg Glu (eAG) 114 mg/dL (.); x Labcorp Hemoglobin A1c 5.6 % (4.8-5.6)
== END ==
PROVIDERS: PCP Nurse Practitioner; Referring Provider Nurse Practitioner; Visit Provider Nurse Practitioner
DX: E78.1 Pure hyperglyceridemia; I10 Essential (primary) hypertension; E78.2 Mixed hyperlipidemia; Z79.899 Other long term (current) drug therapy
CPT/HCPCS: 36415; 80053; 80061; 82043; 82570; 83036; 84439; 84443; 84481

== ENCOUNTER → 2022-12-10 11:12 | Outpatient (CLI) | payer OTHER, SELFPAY ==
--- NOTE | 2022-12-10 11:12 | DI.RAD.S_ITS ---
Bone Density Report Name: FAIZAN ROSARIO Age: 77 Sex: Female Ethnicity: White Date of : 1945 Indication: osteopenia; Referring Provider: YOKO CHRISTY Study: Bone densitometry was performed. Exam Date: December 10, 2022 Accession number: [id number] Bone Density: Region BMD T-score Z-score Classification AP Spine(L1-L4) 1.003 -0.4 2.1 Normal Femoral Neck (Left) 0.711 -1.2 0.9 Osteopenia Total Hip (Left) 0.873 -0.6 1.4 Normal Femoral Neck (Right) 0.696 -1.4 0.8 Osteopenia Total Hip (Right) 0.867 -0.6 1.3 Normal Total Hip Mean 0.870 -0.6 1.4 Normal World Health Organization criteria for BMD impression classify patients as: Normal (T-score at or above -1.0), Osteopenia (T-score between -1.0 and -2.5), or Osteoporosis (T-score at or below -2.5). 10-year Fracture Risk(1): Major Osteoporotic Fracture 12% Hip Fracture 2.4% Reported Risk Factors: [place] (), Neck BMD=0.696, BMI=31.6 (1) FRAX(R) Version 3.08. Fracture probability calculated for an untreated patient. Fracture probability may be lower if the patient has received treatment. Previous Exams: -- Region Exam Age BMD T-score BMD Change BMD Change Date g/cm2 vs Baseline vs Previous -- AP Spine (L1-L4) 12/10/2022 77 1.003 -0.4 0.075 (8.0%)# 0.075 (8.0%)# 09/02/2020 75 0.928 -1.1 Total Hip(Left) 12/10/2022 77 0.873 -0.6 0.014 (1.6%)# 0.014 (1.6%)# 09/02/2020 75 0.860 -0.7 Total Hip(Right) 12/10/2022 77 0.867 -0.6 0.029 (3.5%)# 0.029 (3.5%)# 09/02/2020 75 0.837 -0.9 -- *Denotes significance at 95% confidence level, LSC for AP Spine = 0.022 g/cm2, LSC for Total Hip = 0.027 g/cm2 # Denotes dissimilar scan types or analysis methods Impression: The patient has low bone mass, based on the Right Femoral Neck T-score. The patient has an estimated ten-year risk of hip fracture of 2.4% and an estimated ten-year risk of major fracture of 12%, based on the WHO FRAX algorithm. No significant bone loss was observed. Discussion: BONE DENSITY IS LOW AT ONE OR MORE SKELETAL SITES. This patient's lowest T-score is low at one or more skeletal sites. It meets the World Health Organization's (WHO) criteria for low bone mass (T-score between -1.0 and -2.5). The patient's 10-year risk of fracture as calculated by FRAX is less than the threshold where pharmacological therapy is recommended by the National Osteoporosis Foundation (NOF). However, all treatment decisions require clinical judgment and consideration of individual patient factors, including patient preferences, comorbidities, previous drug use, risk factors not captured in the FRAX model (e.g., frailty, falls, vitamin D deficiency, increased bone turnover, interval significant decline in bone density) and possible under or overestimation of fracture risk by FRAX. The patient should follow a healthful lifestyle (good nutrition with adequate calcium and vitamin D, and appropriate weight-bearing exercise). Follow-Up: Consider repeating this study in 2 to 3 years to reassess this patient's status, or sooner if there is some new clinical indication. Reported by: JEANNE LAL M.D on 12/10/2022 11:30:00 AM.
== END ==
PROVIDERS: PCP Nurse Practitioner; Referring Provider Nurse Practitioner; Visit Provider Nurse Practitioner
DX: M85.851 Other specified disorders of bone density and structure, right thigh; Z78.0 Asymptomatic menopausal state; Z90.710 Acquired absence of both cervix and uterus
CPT/HCPCS: 77080

== ENCOUNTER → 2023-05-16 08:43 | Outpatient (CLI) | payer OTHER, SELFPAY ==
--- NOTE | 2023-05-16 | DI.MG.S_ITS ---
BILATERAL DIGITAL SCREENING MAMMOGRAM 3D/2D WITH CAD: 05/16/2023 CLINICAL: Routine screening. Family history of breast cancer. Comparison is made to exams dated: 05/04/2022 mammogram, 09/02/2020 mammogram, and 05/07/2019 mammogram - [facility]. There are scattered areas of fibroglandular density in both breasts (category b / 25%-50% glandular tissue). Current study was also evaluated with a Computer Aided Detection (CAD) system. There are stable benign calcifications in both breasts. There also are stable benign vascular calcifications in both breasts. No significant masses, calcifications, or other findings are seen in either breast. There has been no significant interval change. IMPRESSION: BENIGN There is no mammographic evidence of malignancy. A 1 year screening mammogram is recommended. Based on the Tyrer Cuzick model (a risk assessment model) the patient's lifetime risk is 14.1% and her 10 year risk is 0.0%. According to the ACR, ACS, and NCCN guidelines, an annual breast MRI exam along with mammogram is recommended if the patient's lifetime risk is 20% or greater. This exam was interpreted at Station ID: [id number]. NOTE: For mammograms, a report in lay terms will be sent to the patient. Approximately 15% of breast malignancies will not be visualized mammographically. In the management of a palpable breast mass, a negative mammogram must not discourage biopsy of a clinically suspicious lesion. Electronically Signed By: Lion dixon/monae:05/16/2023 10:22:12 letter sent: Normal Exam ACR BI-RADS Category 2: Benign Finding(s) 3342F
== END ==
PROVIDERS: PCP Nurse Practitioner; Referring Provider Nurse Practitioner; Visit Provider Nurse Practitioner
DX: Z12.31 Encounter for screening mammogram for malignant neoplasm of breast (principal); Z80.3 Family history of malignant neoplasm of breast
CPT/HCPCS: 77063; 77067

== ENCOUNTER → 2023-06-07 13:53 | Outpatient (CLI) | payer OTHER, SELFPAY ==
[2023-06-07 15:22] LABS: BUN Creatinine Ratio 23.5 (6-22); Blood Urea Nitrogen 16 mg/dL (7-17); Estimated Glomerular Filt Rate > 60 mL/min (>60)
--- NOTE | 2023-06-07 15:33 | DI.CT.S_ITS ---
PROCEDURE: CT ANGIO HEAD INDICATIONS: Fall in Mar 2023 w/LOC - downbeat nystagmus - dizziness TECHNIQUE: Precontrast 4.5 mm thick angled axial sections acquired from the foramen magnum to the vertex. After the administration of intravenous contrast, 1 mm thick sections acquired through the [place] of [place]. Postcontrast 4.5 mm thick sections then re-acquired from the foramen magnum to the vertex. 10 mm thick rrrumwi-oytdhjjdo-rapvtytdzp (MIP) reformats were acquired of the central intracranial vasculature. For radiation dose reduction, the following was used: automated exposure control, adjustment of mA and/or kV according to patient size. COMPARISON: None. FINDINGS: Image quality: Diagnostic. Anterior circulation: Intracranial internal carotid arteries are normal in size and flow. The flow within the paired anterior cerebral arteries is normal and symmetric. The flow within the middle cerebral arteries is normal and symmetric. The anterior communicating artery is seen. No aneurysms are seen. Posterior circulation: Visualized portions of the vertebral arteries demonstrate normal caliber, and join to form a normal appearing basilar artery. Flow within the posterior cerebral arteries is normal and symmetric. No aneurysms are seen. CSF spaces: Ventricles are normal in size and shape. Basal cisterns are patent. No extra-axial fluid collections. Brain: No midline shift. No intracranial bleeds or masses. [place]-white matter interface appears intact. Skull and face: Calvarium and facial bones appear intact, without suspicious lesions. Sinuses: Visualized sinuses and mastoids are clear. IMPRESSION: No significant intracranial arterial abnormality is seen. Dictated by: Newton Galarza M.D. on 06/07/2023 at 16:08 Approved by: Newton Galarza M.D. on 06/07/2023 at 16:10
== END ==
LOC: CT 13:53
PROVIDERS: Physician Assistant; PCP Nurse Practitioner; Referring Provider Nurse Practitioner; Visit Provider Nurse Practitioner
DX: H55.09 Other forms of nystagmus (principal); S06.30 Unspecified focal traumatic brain injury; R42 Dizziness and giddiness; Z01.812 Encounter for preprocedural laboratory examination
CPT/HCPCS: 36415; 70496; 82565; 84520

== ENCOUNTER → 2023-08-05 12:54 | Outpatient (CLI) | payer OTHER, SELFPAY ==
--- NOTE | 2023-08-05 12:56 | DI.RAD.S_ITS ---
PROCEDURE: XR KNEE LT 3V INDICATIONS: Left knee pain x1 month TECHNIQUE: 3 views of the knee were acquired. COMPARISON: [facility], CR, XR KNEE RT 3V, 11/20/2022, 9:31. FINDINGS: Bones: No fractures or dislocations. Severe joint space narrowing at the lateral patellofemoral compartment. Mild joint space narrowing in the medial and lateral compartments. Tricompartmental osteophytosis. No suspicious bony lesions. Soft tissues: Small joint effusion. Question chondrocalcinosis at the lateral compartment. No suspicious soft tissue calcifications. 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 Dictated by: Reid Mijares M.D. on 08/05/2023 at 17:26 Approved by: Reid Mijares M.D. on 08/05/2023 at 17:29
== END ==
PROVIDERS: PCP Nurse Practitioner; Referring Provider Nurse Practitioner; Visit Provider Nurse Practitioner
DX: M17.12 Unilateral primary osteoarthritis, left knee (principal); M25.562 Pain in left knee
CPT/HCPCS: 73562

== ENCOUNTER → 2023-12-18 06:53 | Outpatient (CLI) | payer OTHER, SELFPAY ==
[2023-12-18 08:24] LABS: Add Manual Diff / Slide Review NO; Basophils Absolute Auto 100 /uL (0-100); Basophils Percent Auto 0.9 % (0-2); Eosinophils Absolute Auto 200 /uL (0-450); Eosinophils Percent Auto 2.3 % (2-4); Hemoglobin 14.1 g/dL (12.0-16.0); Lymphocytes Absolute Auto 1700 /uL (1100-4500); Lymphocytes Percent Auto 21.9 % (25-40); Mean Corpuscular HGB Conc 34.3 % (30-36); Mean Corpuscular Hemoglobin 32.9 PG (26-34); Mean Corpuscular Volume 95.9 fL (80-100); Monocytes Absolute Auto 800 /uL (0-900); Monocytes Percent Auto 9.5 % (3-14); Neutrophils Absolute Auto 5200 /uL (1500-7000); Neutrophils Percent Auto 65.4 % (50-75); Platelet Count 278 X10^3/uL (150-400); Red Blood Cell Count 4.28 X10^6/uL (4.0-5.2); Red Cell Distribution Width 13.4 % (11.6-14.8)
[2023-12-18 08:40] LABS: Alanine Aminotransferase 25 IU/L (<35); Albumin 4.2 g/dL (3.5-5.0); Albumin Globulin Ratio 1.6 (1.0-2.8); Alkaline Phosphatase 82 U/L (38-126); Aspartate Aminotransferase 32 IU/L (14-36); BUN Creatinine Ratio 15.9 (6-22); Bilirubin Total 1.1 mg/dL (0.2-1.3); Blood Urea Nitrogen 11 mg/dL (7-17); Calcium 9.1 mg/dL (8.4-10.2); Carbon Dioxide 30 mmol/L (22-32); Chloride 102 mmol/L (98-107); Cholesterol 115 mg/dL (140-199); Estimated Glomerular Filt Rate > 60 mL/min (>60); Globulin 2.7 g/dL (1.7-4.1); Glucose 108 mg/dL (80-110); HDL Cholesterol 65 mg/dL (40-60); HEMOLYSIS < 15 (0-50); LDL Cholesterol Calculated 23 mg/dL (<100); Potassium 4.4 mmol/L (3.4-5.1); Sodium 137 mmol/L (137-145); Total Protein 6.9 g/dL (6.3-8.2); Triglycerides 136 mg/dL (35-150)
[2023-12-18 08:57] LABS: Free T3, Triiodothyronine Free 3.83 pg/mL (2.77-5.27); Free T4, Direct Thyroxine 0.88 ng/dL (0.78-2.19)
[2023-12-18 09:11] LABS: Thyroid Stimulating Hormone 2.74 uIU/mL (0.47-4.68)
[2023-12-18 10:28] LABS: Microalbumin Urine Random 28.2 mg/dL (0-1.6)
[2023-12-19 17:17] LABS: Hep C Virus Ab w/Reflex Quant NEGATIVE s/c (NEGATIVE)
== END ==
PROVIDERS: PCP Nurse Practitioner; Referring Provider Nurse Practitioner; Visit Provider Nurse Practitioner
DX: Z79.899 Other long term (current) drug therapy (principal); E78.5 Hyperlipidemia, unspecified; I10 Essential (primary) hypertension; E78.1 Pure hyperglyceridemia; G30.9 Alzheimer's disease, unspecified; F02.80 Dementia in other diseases classified elsewhere, unspecified severity, without behavioral disturbance, psychotic disturbance, mood disturbance, and anxiety; R73.01 Impaired fasting glucose; M85.80 Other specified disorders of bone density and structure, unspecified site; Z78.0 Asymptomatic menopausal state
CPT/HCPCS: 36415; 80053; 80061; 82043; 82570; 84439; 84443; 84481; 85025; 86803

== ENCOUNTER → 2024-02-06 14:05 | Outpatient (CLI) | payer OTHER, SELFPAY | PROVIDERS: PCP Nurse Practitioner; Referring Provider Physician Assistant; Visit Provider Surgery | DX: T81.89XA Other complications of procedures, not elsewhere classified, initial encounter (principal); S81.802A Unspecified open wound, left lower leg, initial encounter; L98.8 Other specified disorders of the skin and subcutaneous tissue; L53.9 Erythematous condition, unspecified; R60.0 Localized edema; I87.2 Venous insufficiency (chronic) (peripheral); I83.892 Varicose veins of left lower extremity with other complications | CPT/HCPCS: 11042; 87070; 87075; 87077; 87147; 87205; 99203; 99213 ==

== ENCOUNTER → 2024-02-14 13:59 | Outpatient (CLI) | payer OTHER, SELFPAY | LOC: WC 14:00 | PROVIDERS: PCP Nurse Practitioner; Referring Provider Dermatology; Visit Provider Physician Assistant | DX: T81.89XA Other complications of procedures, not elsewhere classified, initial encounter (principal); S81.802A Unspecified open wound, left lower leg, initial encounter; L98.8 Other specified disorders of the skin and subcutaneous tissue; R60.0 Localized edema; L53.9 Erythematous condition, unspecified; I10 Essential (primary) hypertension | CPT/HCPCS: 11042; 99213 ==

== ENCOUNTER → 2024-02-21 09:32 | Outpatient (CLI) | payer OTHER, SELFPAY | LOC: WC 09:35 | PROVIDERS: PCP Nurse Practitioner; Referring Provider Dermatology; Visit Provider Physician Assistant | DX: T81.89XA Other complications of procedures, not elsewhere classified, initial encounter (principal); L98.8 Other specified disorders of the skin and subcutaneous tissue; S81.802A Unspecified open wound, left lower leg, initial encounter; R60.0 Localized edema | CPT/HCPCS: 11042; 99214 ==

== ENCOUNTER → 2024-03-02 10:19 | Outpatient (CLI) | payer OTHER, SELFPAY | PROVIDERS: PCP Nurse Practitioner; Referring Provider Dermatology; Visit Provider Surgery | DX: S81.802A Unspecified open wound, left lower leg, initial encounter (principal); T81.89XA Other complications of procedures, not elsewhere classified, initial encounter; I87.2 Venous insufficiency (chronic) (peripheral); R60.0 Localized edema; I83.892 Varicose veins of left lower extremity with other complications | CPT/HCPCS: 11042 ==

== ENCOUNTER → 2024-03-02 14:10 | Outpatient (CLI) | payer OTHER, SELFPAY ==
--- NOTE | 2024-03-02 14:11 | DI.US.S_ITS ---
PROCEDURE: US CAROTID DOPPLER BI INDICATIONS: HX OF STROKE TECHNIQUE: Color and pulse Doppler interrogation was performed of both carotid systems, with image documentation and velocity measurements. COMPARISON: [facility], CT, CT ANGIO HEAD, 06/07/2023, 15:31. FINDINGS: Stenosis calculations are based on SRU (Society of Radiologists in Ultrasound) criteria. The flow velocities and the arterial waveforms are normal within both carotid arterial systems. Atherosclerotic plaque is seen on both sides. The estimated degree of internal carotid artery stenosis is less than 50%. Antegrade flow is confirmed within both vertebral arteries. IMPRESSION: No hemodynamically significant stenosis is seen. Atherosclerotic plaque is noted bilaterally. Dictated by: Roger Rose M.D. on 03/02/2024 at 16:52 Approved by: Roger Rose M.D. on 03/02/2024 at 16:53
== END ==
PROVIDERS: PCP Nurse Practitioner; Referring Provider Nurse Practitioner Family; Visit Provider Nurse Practitioner Family
DX: I65.23 Occlusion and stenosis of bilateral carotid arteries (principal); Z86.73 Personal history of transient ischemic attack (TIA), and cerebral infarction without residual deficits
CPT/HCPCS: 93880

== ENCOUNTER → 2024-03-09 10:19 | Outpatient (CLI) | payer OTHER, SELFPAY | LOC: WC 10:21 | PROVIDERS: PCP Nurse Practitioner; Referring Provider Dermatology; Visit Provider Surgery | DX: S81.802A Unspecified open wound, left lower leg, initial encounter (principal); T81.89XA Other complications of procedures, not elsewhere classified, initial encounter; L98.8 Other specified disorders of the skin and subcutaneous tissue; I87.2 Venous insufficiency (chronic) (peripheral); R60.0 Localized edema; I83.892 Varicose veins of left lower extremity with other complications | CPT/HCPCS: 11042 ==

== ENCOUNTER → 2024-03-16 13:28 | Outpatient (CLI) | payer OTHER, SELFPAY | LOC: WC 13:31 | PROVIDERS: PCP Nurse Practitioner; Referring Provider Dermatology; Visit Provider Surgery | DX: R60.0 Localized edema (principal); I87.2 Venous insufficiency (chronic) (peripheral); S81.802D Unspecified open wound, left lower leg, subsequent encounter; T81.89XD Other complications of procedures, not elsewhere classified, subsequent encounter | CPT/HCPCS: 99212; 99213 ==

== ENCOUNTER → 2024-05-18 09:54 | Outpatient (CLI) | payer OTHER, SELFPAY ==
--- NOTE | 2024-05-18 09:55 | DI.MG.S_ITS ---
BILATERAL DIGITAL SCREENING MAMMOGRAM 3D/2D WITH CAD: 05/18/2024 CLINICAL: Routine screening. Family history of breast cancer. Comparison is made to exams dated: 05/16/2023 mammogram, 05/04/2022 mammogram, and 09/02/2020 mammogram - [facility]. There are scattered areas of fibroglandular density (category b / 25%-50% glandular tissue). Current study was also evaluated with a Computer Aided Detection (CAD) system. There are grouped fine heterogeneous calcifications in the left breast central to the nipple middle depth. These are more prominent and increased in number. There also is a possible new oval asymmetry in the left breast middle depth central to the nipple seen on the craniocaudal view only. No other significant masses, calcifications, or other findings are seen in either breast. IMPRESSION: INCOMPLETE: NEED ADDITIONAL IMAGING EVALUATION The grouped fine heterogeneous calcifications in the left breast central to the nipple middle depth are indeterminate. Diagnostic mammogram for additional views to include mediolateral and spot magnification views is recommended. The possible new oval asymmetry in the left breast middle depth central to the nipple seen on the craniocaudal view only is indeterminate. Additional views with possible ultrasound are recommended. Based on the Tyrer Cuzick model (a risk assessment model) the patient's lifetime risk is 12.7% and her 10 year risk is 0.0%. According to the ACR, ACS, and NCCN guidelines, an annual breast MRI exam along with mammogram is recommended if the patient's lifetime risk is 20% or greater. This exam was interpreted at Station ID: [id number]. NOTE: For mammograms, a report in lay terms will be sent to the patient. Approximately 15% of breast malignancies will not be visualized mammographically. In the management of a palpable breast mass, a negative mammogram must not discourage biopsy of a clinically suspicious lesion. Electronically Signed By: Matthew Kapoor M.D. aty/:05/18/2024 13:34:37 letter sent: Additional Imaging Needed ACR BI-RADS Category 0: Incomplete: Need Additional Imaging Evaluation
== END ==
LOC: MAMMO 09:54
PROVIDERS: PCP Family Medicine; Referring Provider Family Medicine; Visit Provider Family Medicine
DX: Z12.31 Encounter for screening mammogram for malignant neoplasm of breast (principal); Z80.3 Family history of malignant neoplasm of breast
CPT/HCPCS: 77063; 77067

== ENCOUNTER → 2024-06-02 06:53 | Outpatient (CLI) | payer OTHER, SELFPAY ==
[2024-06-02 07:47] LABS: Alanine Aminotransferase 37 IU/L (<35); Albumin 4.2 g/dL (3.5-5.0); Albumin Globulin Ratio 1.7 (1.0-2.8); Alkaline Phosphatase 90 U/L (38-126); Aspartate Aminotransferase 38 IU/L (14-36); Bilirubin Total 0.4 mg/dL (0.2-1.3); Blood Urea Nitrogen 12 mg/dL (7-17); Calcium 9.5 mg/dL (8.4-10.2); Carbon Dioxide 27 mmol/L (22-32); Chloride 103 mmol/L (98-107); Cholesterol 113 mg/dL (140-199); Estimated Glomerular Filt Rate > 60 mL/min (>60); Globulin 2.5 g/dL (1.7-4.1); Glucose 117 mg/dL (80-110); HDL Cholesterol 50 mg/dL (40-60); HEMOLYSIS < 15 (0-50); LDL Cholesterol Calculated 38 mg/dL (<100); Potassium 4.9 mmol/L (3.4-5.1); Sodium 137 mmol/L (137-145); Total Protein 6.7 g/dL (6.3-8.2); Triglycerides 125 mg/dL (35-150)
[2024-06-02 09:04] LABS: Creatinine Urine Random 247.17 mg/dL
[2024-06-02 09:09] LABS: Microalbumin Urine Random 13.8 mg/dL (0-1.6)
== END ==
PROVIDERS: PCP Family Medicine; Referring Provider Nurse Practitioner; Visit Provider Nurse Practitioner
DX: E78.1 Pure hyperglyceridemia (principal); R73.01 Impaired fasting glucose; G30.9 Alzheimer's disease, unspecified; F02.80 Dementia in other diseases classified elsewhere, unspecified severity, without behavioral disturbance, psychotic disturbance, mood disturbance, and anxiety; I10 Essential (primary) hypertension; R80.9 Proteinuria, unspecified; Z79.899 Other long term (current) drug therapy
CPT/HCPCS: 36415; 80053; 80061; 82043; 82570

== ENCOUNTER → 2024-06-12 09:20 | Outpatient (CLI) | payer OTHER, SELFPAY ==
--- NOTE | 2024-06-12 09:21 | DI.MG.S_ITS ---
UNILATERAL LEFT DIGITAL DIAGNOSTIC MAMMOGRAM 3D/2D WITH ADDITIONAL VIEWS: 06/12/2024 CLINICAL: Additional evaluation requested from prior study. Comparison is made to exams dated: 05/18/2024 mammogram, 05/16/2023 mammogram, and 05/04/2022 mammogram - [facility]. There are scattered areas of fibroglandular density (category b / 25%-50% glandular tissue). The asymmetry seen on recent screening mammogram did not persist with additional imaging and is consistent with superimposition of normal breast tissue. There are multiple groups of benign round and dystrophic calcifications in the central left breast, which are not significantly changed dating back to at least 2021. No significant masses, calcifications, or other findings are seen in the breast. IMPRESSION: BENIGN Left breast benign calcifications in the central region. No mammographic evidence of malignancy. A 1 year screening mammogram is recommended. Findings and recommendations were conveyed to the patient during today's evaluation. Based on the Tyrer Cuzick model (a risk assessment model) the patient's lifetime risk is 11.3% and her 10 year risk is 0.0%. According to the ACR, ACS, and NCCN guidelines, an annual breast MRI exam along with mammogram is recommended if the patient's lifetime risk is 20% or greater. This exam was interpreted at Station ID: [id number]. NOTE: For mammograms, a report in lay terms will be sent to the patient. Approximately 15% of breast malignancies will not be visualized mammographically. In the management of a palpable breast mass, a negative mammogram must not discourage biopsy of a clinically suspicious lesion. Electronically Signed By: Silvia Bingham M.D., Ph.D. eb/:06/13/2024 00:41:49 letter sent: Normal Exam ACR BI-RADS Category 2: Benign
== END ==
PROVIDERS: PCP Family Medicine; Referring Provider Family Medicine; Visit Provider Family Medicine
DX: R92.8 Other abnormal and inconclusive findings on diagnostic imaging of breast (principal); R92.1 Mammographic calcification found on diagnostic imaging of breast
CPT/HCPCS: 77065; G0279

== ENCOUNTER → 2024-10-15 10:31 | Outpatient (CLI) | payer OTHER, SELFPAY ==
--- NOTE | 2024-10-15 10:34 | DI.RAD.S_ITS ---
PROCEDURE: XR FINGER RT MIN 2V INDICATIONS: right index finger persistent swelling TECHNIQUE: AP hand, 2 views of the 2nd finger(s) acquired. COMPARISON: None. FINDINGS: Bones: No fractures or dislocations. No suspicious bony lesions. Soft tissues: No suspicious soft tissue calcifications. Mild soft tissue swelling 2nd digit proximally IMPRESSION: No acute bony abnormality. Mild soft tissue swelling proximal 2nd digit, etiology uncertain. No gas in the soft tissues or underlying foreign body or osteomyelitis is found. Dictated by: Newton Galarza M.D. on 10/15/2024 at 12:13 Approved by: Newton Galarza M.D. on 10/15/2024 at 12:14
[2024-10-15 11:04] LABS: Add Manual Diff / Slide Review NO; Basophils Absolute Auto 100 /uL (0-100); Basophils Percent Auto 0.6 % (0-2); Eosinophils Absolute Auto 100 /uL (0-450); Eosinophils Percent Auto 0.9 % (2-4); Hematocrit 41.4 % (36-46); Hemoglobin 14.3 g/dL (12.0-16.0); Lymphocytes Absolute Auto 2100 /uL (1100-4500); Lymphocytes Percent Auto 22.5 % (25-40); Mean Corpuscular HGB Conc 34.6 % (30-36); Mean Corpuscular Hemoglobin 32.6 PG (26-34); Mean Corpuscular Volume 94.3 fL (80-100); Monocytes Absolute Auto 1000 /uL (0-900); Monocytes Percent Auto 10.5 % (3-14); Neutrophils Absolute Auto 6300 /uL (1500-7000); Neutrophils Percent Auto 65.5 % (50-75); Platelet Count 276 X10^3/uL (150-400); Red Blood Cell Count 4.39 X10^6/uL (4.0-5.2); Red Cell Distribution Width 13.9 % (11.6-14.8); White Blood Cell Count 9.6 X10^3/uL (4.5-11.0)
[2024-10-15 11:21] LABS: Alanine Aminotransferase 28 IU/L (<35); Albumin 4.5 g/dL (3.5-5.0); Albumin Globulin Ratio 1.6 (1.0-2.8); Alkaline Phosphatase 88 U/L (38-126); Aspartate Aminotransferase 33 IU/L (14-36); BUN Creatinine Ratio 24.7 (6-22); Bilirubin Total 0.9 mg/dL (0.2-1.3); Blood Urea Nitrogen 19 mg/dL (7-17); Calcium 9.4 mg/dL (8.4-10.2); Carbon Dioxide 27 mmol/L (22-32); Chloride 102 mmol/L (98-107); Estimated Glomerular Filt Rate > 60 mL/min (>60); Globulin 2.9 g/dL (1.7-4.1); Glucose 112 mg/dL (70-99); HEMOLYSIS < 15 (0-50); Potassium 4.7 mmol/L (3.4-5.1); Sodium 137 mmol/L (137-145); Total Protein 7.4 g/dL (6.3-8.2); Uric Acid 6.4 mg/dL (2.5-6.2)
== END ==
PROVIDERS: PCP Family Medicine; Referring Provider Family Medicine; Visit Provider Family Medicine
DX: M79.89 Other specified soft tissue disorders (principal)
CPT/HCPCS: 36415; 73140; 80053; 84550; 85025

== ENCOUNTER → 2024-12-31 12:34 | Outpatient (CLI) | payer OTHER, SELFPAY ==
--- NOTE | 2024-12-31 12:35 | DI.RAD.S_ITS ---
PROCEDURE: XR KNEE RT 3V INDICATIONS: knee pain TECHNIQUE: 3 views of the knee were acquired. COMPARISON: [facility], CR, XR KNEE LT 3V, 08/05/2023, 13:38. FINDINGS: Bones: There are no osseous abnormalities. Joints: Severe patellofemoral and moderate medial tibial femoral degeneration appreciated. There is chondrocalcinosis in both menisci Moderate chondrocalcinosis in both menisci. Small effusion slight lateral patellar subluxation Soft tissues: Normal IMPRESSION: Degeneration. Chondrocalcinosis of the menisci Dictated by: Shaun Hernandez M.D. on 01/01/2025 at 9:25 Approved by: Shaun Hernandez M.D. on 01/01/2025 at 9:26
== END ==
LOC: RAD 12:35
PROVIDERS: PCP Family Medicine; Referring Provider Family Medicine; Visit Provider Family Medicine
DX: M17.11 Unilateral primary osteoarthritis, right knee (principal); M11.261 Other chondrocalcinosis, right knee; M25.461 Effusion, right knee; M25.561 Pain in right knee; G89.29 Other chronic pain
CPT/HCPCS: 73562

== ENCOUNTER → 2025-02-15 12:14 | Outpatient (CLI) | payer OTHER, SELFPAY ==
--- NOTE | 2025-02-15 12:15 | DI.RAD.S_ITS ---
PROCEDURE: XR DEXA AXIAL SKELETON INDICATIONS: Osteoporosis COMPARISON: [facility], , XR DEXA AXIAL SKELETON, 12/10/2022, 11:23. [facility], CR, XR DEXA AXIAL SKELETON, 09/02/2020, 13:34. FINDINGS: Lumbar Spine: Bone mineral density 0.983 g/cm2, T score -0.6, normal. Left Femoral Neck: Bone mineral density is 0.675 g/cm2, T score -1.6. Left Hip: Bone mineral density 0.857 g/cm2, T score -0.7, osteopenia. Fracture Risk Calculation (when applicable): 10-year fracture risk of a major osteoporotic fracture 13 percent and of a hip fracture 3 percent. (T score greater or equal to -1.0 to: NORMAL) (T score from -1.1 to -2.4: OSTEOPENIA) (T score less than or equal to -2.5: OSTEOPOROSIS) IMPRESSION: Osteopenia Follow-up guidelines as follows: Osteoporosis: Consider a repeat DEXA and Vertebral Fracture Assessment (VFA) exam in 2 years or sooner if medically necessary, to reassess this patient's status. Osteopenia: Consider a repeat DEXA in 2-3 years to reassess this patient's status, or if there is a new clinical indication. Normal: Consider a repeat DEXA in 5 years or sooner, or if there is a new clinical indication. All treatment decisions require clinical judgment and consideration of individual patient factors, including patient preferences, comorbidities, previous drug use, risk factors not captured in the FRAX model (e.g., frailty, falls, vitamin D deficiency, increased bone turnover, interval significant decline in bone density ) and possible under- or over-estimation of fracture risk by FRAX. In addition, the NOF Guide recommends that FDA-approved medical therapies be considered in postmenopausal women and men age >= 50 years with a: * Hip or vertebral (clinical or morphometric) fracture * T-score of <=-2.5 at the spine or hip * Ten-year fracture probability by FRAX of >= 3% for hip fracture or >=20% for major osteoporotic fracture. Dictated by: Jamie Myers M.D. on 02/15/2025 at 16:03 Approved by: Jamie Myers M.D. on 02/15/2025 at 16:06
== END ==
LOC: RAD 12:15
PROVIDERS: PCP Family Medicine; Referring Provider Family Medicine; Visit Provider Family Medicine
DX: M81.6 Localized osteoporosis [Lequesne] (principal)
CPT/HCPCS: 77080